=== PATIENT | male | born 1975 | race Caucasian/White ===

== ENCOUNTER 2023-11-26 09:21 | Day surgery (SDC) | payer OTHER ==
[~2023-11-26] VITALS: Ht 182.9 cm; Wt 135.9 kg
[~2023-11-26 09:21] MED LIST: ADV250INH INH; ALBU8.5H INH; ALL10TAB3 PO; CLOM50TA28 PO; CVS1CHW13 PO; FAMO1TAB11 PO; FLUTISP; MONT10TA97 PO; PANT40TA29 PO; PRAV40TA2 PO; THERTAB52 PO; VITA100093 PO; VITA500065 PO; VITA500C24 PO; VITA500T11 PO
[2023-11-26] MEDS: NS 1,000 ML IV ONE (10:05)
[2023-11-26] MEDS ORDERED: BREO1INH3 INH (10:09)
[2023-11-26] MEDS ORDERED: propofoL 200 MG/20 ML VIAL As Ordered ONE (10:20)
[2023-11-26 11:36] VITALS: BP 128/60; TEMP 97.2; O2SAT 95
== END 2023-11-26 11:39 | disposition home or self-care (01) ==
LOC: M OPP 09:21
PROVIDERS: ATTEND Internal Medicine Gastroenterology
DX: K64.4 Residual hemorrhoidal skin tags (principal); K64.8 Other hemorrhoids; D12.6 Benign neoplasm of colon, unspecified; Z98.0 Intestinal bypass and anastomosis status; K92.1 Melena; G47.30 Sleep apnea, unspecified; Z99.89 Dependence on other enabling machines and devices; Z79.02 Long term (current) use of antithrombotics/antiplatelets; Z79.1 Long term (current) use of non-steroidal anti-inflammatories (NSAID); Z79.51 Long term (current) use of inhaled steroids; Z79.818 Long term (current) use of other agents affecting estrogen receptors and estrogen levels; Z88.1 Allergy status to other antibiotic agents; Z88.8 Allergy status to other drugs, medicaments and biological substances

== ENCOUNTER → 2024-09-05 | Outpatient (CLI) | payer OTHER ==
[~2024-09-05] MED LIST changes: -ADV250INH INH; +ADVA1AER9 INH; +BREO1INH3 INH
[2024-09-05 18:54] LABS: IRON (FE) 55 UG/DL (65-175); PERCENT SATURATION 17.3 % (19.7-50.0); TOTAL IRON BINDING CAPACITY 318 UG/DL (250-425)
[2024-09-05 18:56] LABS: ALKALINE PHOSPHATASE 61 U/L (40-129); ALT/SGPT 35 U/L (7.0-40); AST/SGOT 19 U/L (<34); BILIRUBIN,DIRECT 0.1 MG/DL (<0.4); BILIRUBIN,TOTAL 0.5 MG/DL (0.3-1.2); TOTAL PROTEIN 6.7 G/DL (5.7-8.2)
[2024-09-05 18:59] LABS: FERRITIN 145.6 NG/ML (10.5-307.3)
[2024-09-05 19:11] LABS: HEPATITIS B SURFACE ANTIGEN NEGATIVE (NEGATIVE)
[2024-09-05 19:31] LABS: HEPATITIS B CORE ANTIBODY IGM NEGATIVE (NEGATIVE)
[2024-09-05 19:33] LABS: HEPATITIS C VIRUS ABY INDEX < 0.02 INDEX (<0.8)
== END ==
LOC: M LRY 14:23
PROVIDERS: ATTEND Physician Assistant Medical
DX: R74.01 Elevation of levels of liver transaminase levels (principal)